=== PATIENT | female | born 1980 | race Two or more races ===

== ENCOUNTER 2018-11-30 06:03 | Day surgery (SDC) | payer BC, OTHER ==
[~2018-11-30] VITALS: Ht 165.1 cm; Wt 70.3 kg
[~2018-11-30 06:03] MED LIST: Hair, Skin & N1 EACH PO
--- NOTE | 2018-11-30 06:32 | NUR ---
History, Chart, Medications and Allergies reviewed before start of procedure. Patient confirms NPO status and agrees with scheduled surgery. Patient reports completing Chlorhexadine shower X2 prior to admission to hospital. Patient States Post-Procedure ride home has been arranged with her . Lungs clear T/O to Auscultation.
--- NOTE | 2018-11-30 09:25 | NUR ---
"DAY SURGERY RN | DISCHARGE Patient VSS, A/O. Denies pain and nausea. Tolerating PO fluids and crackers. Discharge instructions given with family at bedside. No issues in day surgery stepdown. RX given to patient. Patient transferred via wheelchair to front entrance by volunteer for ride home from family."
== END 2018-11-30 22:53 | disposition home or self-care (01) ==
LOC: ORSCMMR 06:03 → ORD 07:30 → ORSCMMR 22:53
PROVIDERS: Surgery
PROC: 0JB60ZX Excision of Chest Subcutaneous Tissue and Fascia, Open Approach, Diagnostic (ICD-10-PCS; principal; 2018-11-30 07:30)
PROC: 0HBBXZX Excision of Right Upper Arm Skin, External Approach, Diagnostic (ICD-10-PCS; principal; 2018-11-30 07:30)
DX: D17.1 Benign lipomatous neoplasm of skin and subcutaneous tissue of trunk (principal)
CPT/HCPCS: 88304; J0690; J1100; J1885; J2250; J2370; J2405; J2710; J3010; J7120

== ENCOUNTER 2019-02-09 20:17 | Emergency (ER) | payer BC, OTHER ==
[~2019-02-09] VITALS: Ht 165.1 cm; Wt 63.5 kg
[2019-02-09] MEDS ORDERED: ONDA4ODT MM (22:18)
== END 2019-02-09 22:42 | disposition home or self-care (01) ==
LOC: ER 20:17
DX: R11.2 Nausea with vomiting, unspecified (principal); Z79.899 Other long term (current) drug therapy
CPT/HCPCS: 81025; 96374; 99283-25; J2405

== ENCOUNTER → 2019-04-07 | Outpatient (CLI) | payer BC, OTHER ==
[~2019-04-07] MED LIST changes: +ONDA4ODT MM
[2019-04-11 15:06] LABS: HPV 16 Negative (Negative); HPV 18 Negative (Negative); HPV OTHER HR TYPES Negative (Negative)
== END | disposition home or self-care (01) ==
LOC: LAB 11:31 → LAB SHORT 11:31
PROVIDERS: Obstetrics & Gynecology
DX: Z01.419 Encounter for gynecological examination (general) (routine) without abnormal findings (principal)
CPT/HCPCS: 87624; G0123

== ENCOUNTER 2020-07-11 09:50 | Day surgery (SDC) | payer BC, OTHER ==
[~2020-07-11] VITALS: Ht 165.1 cm; Wt 79.1 kg
[~2020-07-11 09:50] MED LIST changes: +ASPI325EC PO; +Hydrocodone-Ap1 EA23 PO
--- NOTE | 2020-07-11 10:04 | NUR ---
INTO [facility] ADMISSION STARTED PATIENT ATTEMPTING DO GIVE URINE SAMPLE FOR TEST. History, Chart, Medications and Allergies reviewed before start of procedure.Lungs clear T/O to Auscultation. Patient confirms NPO status and agrees with scheduled surgery. Patient States Post-Procedure ride home has been arranged.
[2020-07-11] MEDS ORDERED: Adipex-P37.5 MG PO (10:19)
--- NOTE | 2020-07-11 10:26 | NUR ---
Ambulatory in Day Surgery History, Chart, Medications and Allergies reviewed before start of procedure.Patient confirms NPO status and agrees with scheduled surgery. PATIENT UNABLE TO COMPLETE SHOWER DUE TO CHANGE OF TIME OF SURGERY AND PT CALLED TO COME IN RIGHT AWAY. Lungs clear T/O to Auscultation. Surgical site prepped with 2% Chlorhexidine cloth wipe. Patient States Post-Procedure ride home has been arranged WITH SIGNIFICANT OTHER
--- NOTE | 2020-07-11 11:38 | NUR ---
07/11/20 1138 Uday Perez 2 SCREWS REMOVED, CLEANED, STERILIZED AND RETURNED TO PATIENT
--- NOTE | 2020-07-11 13:16 | NUR ---
Discharge instructions reviewed with patient. Patient verbalizes understanding. Copy given to patient to take home. DRG C/D/I TO LEFT TIBIA, DRG SUPPLIES W/PT AND PT WILL COME BACK WHEN SCREW IS CLEANED. PER JV IN OR, NOT IN AUTOCLAVE YET. Discharged via wheelchair to private car for ride home.
== END 2020-07-11 13:19 | disposition home or self-care (01) ==
LOC: ORSCMMR 09:50 → ORD 14:00
PROVIDERS: Orthopaedic Surgery
PROC: 0QPH04Z Removal of Internal Fixation Device from Left Tibia, Open Approach (ICD-10-PCS; principal; 2020-07-11 10:45)
DX: Z47.2 Encounter for removal of internal fixation device (principal)
CPT/HCPCS: J0690; J1100; J1885; J2250; J2405; J2704; J3010; J7120

== ENCOUNTER 2021-10-15 05:11 | Inpatient (IN) | payer OTHER ==
[~2021-10-15] VITALS: Ht 165.1 cm; Wt 97.7 kg
[~2021-10-15 05:11] MED LIST changes: +Adipex-P37.5 MG PO
[2021-10-15 05:53] LABS: BASOPHILS ABSOLUTE AUTO 0.04 K/mm3 (0.00-0.23); BASOPHILS PERCENT AUTO 1 % (0-2); EOSINOPHILS ABSOLUTE AUTO 0.08 K/mm3 (0.00-0.68); EOSINOPHILS PERCENT AUTO 1 % (0-6); Hematocrit 31.4 % (33.0-51.0); Hemoglobin 10.4 g/dL (11.5-16.0); IMMATURE GRAN ABSOLUTE AUTO 0.04 K/mm3 (0.00-0.10); IMMATURE GRAN PERCENT AUTO 1 % (0-1); LYMPHOCYTES ABSOLUTE AUTO 1.59 K/mm3 (0.84-5.20); LYMPHOCYTES PERCENT AUTO 22 % (21-46); MONOCYTES ABSOLUTE AUTO 0.29 K/mm3 (0.16-1.47); MONOCYTES PERCENT AUTO 4 % (4-13); Mean Corpuscular HGB 26.7 pg (26.0-34.0); Mean Corpuscular HGB Conc 33.1 g/dL (31.5-36.5); Mean Corpuscular Volume 81 fL (80-100); Mean Platelet Volume 9.9 fL (9.1-12.4); NEUTROPHILS ABSOLUTE AUTO 5.33 K/mm3 (1.96-9.15); NEUTROPHILS PERCENT AUTO 72 % (41-73); Platelet Count 219 K/mm3 (150-400); RDW Coefficient Variation 16.9 % (11.7-14.2); RDW Standard Deviation 49.2 fL (35.1-46.3); Red Blood Cell Count 3.89 M/mm3 (3.80-5.20); White Blood Cell Count 7.37 K/mm3 (4.00-11.30)
--- NOTE | 2021-10-16 00:41 | NUR ---
LATE ENTRY: AT 1999 PATIENT NOTIFIED US THAT SHE HAD A CLOT THAT SHE WANTED US TO SEE. THE CLOT WAS SLIGHTLY SMALLER THAN A GOLF BALL. SHE HAD 3 MORE SMALL ONES THE SIZE OF A DIME. A FUNDUS CHECK AND MASSAGE WAS DONE WITH SCANT BLEEDING. DISCUSSED CALLING US IF SHE HAS ANYMORE CLOTS AND NOTIFY US IF SHE SATURATES A PAD/HOUR. PATIENT VOICED UNDERSTANDING.
[2021-10-16 06:00] LABS: BASOPHILS ABSOLUTE AUTO 0.05 K/mm3 (0.00-0.23); BASOPHILS PERCENT AUTO 1 % (0-2); EOSINOPHILS ABSOLUTE AUTO 0.05 K/mm3 (0.00-0.68); EOSINOPHILS PERCENT AUTO 1 % (0-6); Hematocrit 29.1 % (33.0-51.0); Hemoglobin 9.6 g/dL (11.5-16.0); IMMATURE GRAN ABSOLUTE AUTO 0.05 K/mm3 (0.00-0.10); IMMATURE GRAN PERCENT AUTO 1 % (0-1); LYMPHOCYTES PERCENT AUTO 14 % (21-46); MONOCYTES ABSOLUTE AUTO 0.43 K/mm3 (0.16-1.47); MONOCYTES PERCENT AUTO 4 % (4-13); Mean Corpuscular HGB 27.1 pg (26.0-34.0); Mean Corpuscular Volume 82 fL (80-100); Mean Platelet Volume 10.4 fL (9.1-12.4); NEUTROPHILS ABSOLUTE AUTO 8.26 K/mm3 (1.96-9.15); NEUTROPHILS PERCENT AUTO 81 % (41-73); Platelet Count 195 K/mm3 (150-400); RDW Coefficient Variation 16.8 % (11.7-14.2); RDW Standard Deviation 49.9 fL (35.1-46.3); Red Blood Cell Count 3.54 M/mm3 (3.80-5.20); White Blood Cell Count 10.24 K/mm3 (4.00-11.30)
--- NOTE | 2021-10-16 16:45 | NUR ---
DISCHARGE INSTRUCTIONS SIGNED. BANDS MATCHED. PT DISCHARGED TO HOME WITH AND INFANT.
== END 2021-10-16 16:50 | disposition home or self-care (01) | DRG 807 ==
LOC: OBS 05:11 → BC 05:15 → OBS 05:16 → BC 05:17
PROVIDERS: ADMIT Obstetrics & Gynecology
PROC: 10E0XZZ Delivery of Products of Conception, External Approach (ICD-10-PCS; principal; 2021-10-15)
PROC: 0KQM0ZZ Repair Perineum Muscle, Open Approach (ICD-10-PCS; 2021-10-15)
PROC: 3E033VJ Introduction of Other Hormone into Peripheral Vein, Percutaneous Approach (ICD-10-PCS; 2021-10-15)
PROC: 10907ZC Drainage of Amniotic Fluid, Therapeutic from Products of Conception, Via Natural or Artificial Opening (ICD-10-PCS; 2021-10-15)
DX: O48.0 Post-term pregnancy (principal); Z37.0 Single live birth; O99.824 Streptococcus B carrier state complicating childbirth; O70.1 Second degree perineal laceration during delivery; O99.02 Anemia complicating childbirth; O99.214 Obesity complicating childbirth; E66.9 Obesity, unspecified; D64.9 Anemia, unspecified; Z3A.41 41 weeks gestation of pregnancy; Z86.16 Personal history of COVID-19; Z28.9 Immunization not carried out for unspecified reason
CPT/HCPCS: 36415; 51702; 85025; 86850; 86900; 86901; A9270; J0290; J1885; J2001; J2590; J3010; J7120

== ENCOUNTER 2023-10-03 11:30 | Emergency (ER) | payer BC ==
[~2023-10-03] VITALS: Ht 165.1 cm; Wt 86.2 kg
[2023-10-03 12:03] VITALS: BP 138/99
[2023-10-03 12:34] LABS: BASOPHILS ABSOLUTE AUTO 0.03 K/mm3 (0.00-0.23); BASOPHILS PERCENT AUTO 0 % (0-2); EOSINOPHILS ABSOLUTE AUTO 0.06 K/mm3 (0.00-0.68); EOSINOPHILS PERCENT AUTO 1 % (0-6); Hematocrit 41.7 % (33.0-51.0); Hemoglobin 13.6 g/dL (11.5-16.0); IMMATURE GRAN ABSOLUTE AUTO 0.02 K/mm3 (0.00-0.10); IMMATURE GRAN PERCENT AUTO 0 % (0-1); LYMPHOCYTES ABSOLUTE AUTO 1.64 K/mm3 (0.84-5.20); LYMPHOCYTES PERCENT AUTO 20 % (21-46); MONOCYTES ABSOLUTE AUTO 0.41 K/mm3 (0.16-1.47); MONOCYTES PERCENT AUTO 5 % (4-13); Mean Corpuscular HGB 27.4 pg (26.0-34.0); Mean Corpuscular HGB Conc 32.6 g/dL (31.5-36.5); Mean Corpuscular Volume 84 fL (80-100); Mean Platelet Volume 9.8 fL (9.1-12.4); NEUTROPHILS ABSOLUTE AUTO 6.22 K/mm3 (1.96-9.15); NEUTROPHILS PERCENT AUTO 74 % (41-73); Platelet Count 256 K/mm3 (150-400); RDW Coefficient Variation 14.6 % (11.7-14.2); RDW Standard Deviation 44.7 fL (35.1-46.3); Red Blood Cell Count 4.96 M/mm3 (3.80-5.20); White Blood Cell Count 8.38 K/mm3 (4.00-11.30)
[2023-10-03 12:40] LABS: Source, Urine Clean Catch
[2023-10-03 13:07] LABS: Albumin, Blood 3.8 g/dL (3.4-5.0); Bilirubin, Total 0.2 mg/dL (0.1-1.0); Bun/Creatinine Ratio 15.7 (12.0-20.0); Calcium, Blood 8.7 mg/dL (8.5-10.1); Creatinine, Blood 0.64 mg/dL (0.40-1.00); Potassium, Blood 3.6 mmol/L (3.5-5.5); Total Protein, Blood 7.8 g/dL (6.4-8.2)
[2023-10-03 13:16] LABS: Bilirubin, Urine Neg (Neg); Blood, Urine 5+ (Neg); Color, Urine Amber (P-Yellow); Glucose Qualitative, Urine Neg (Neg); Ketones, Urine Neg (Neg); Leukocyte Esterase, Urine 1+ (Neg); Nitrite, Urine Neg (Neg); Protein, Urine 2+ (Neg); Urobilinogen, Urine NORM (Normal)
[2023-10-03 14:36] LABS: Appearance, Urine Cloudy (Clear)
[2023-10-03 14:40] LABS: Red Blood Cells, Urine TNTC /hpf (0-2)
[2023-10-03 14:41] LABS: Squamous Epithelial Cells Few /hpf (Few)
[2023-10-03 14:42] LABS: Bacteria Few /hpf
== END 2023-10-03 17:40 | disposition home or self-care (01) ==
LOC: ER 11:30
PROVIDERS: Physician Assistant
DX: N93.9 Abnormal uterine and vaginal bleeding, unspecified (principal); Z79.899 Other long term (current) drug therapy
CPT/HCPCS: 76830; 76856; 80053; 81001; 84703; 85025; 87086; 96374; 99284-25; J1885